=== PATIENT | female | born 1980 | race Two or more races ===

== ENCOUNTER 2019-12-15 20:00 | Inpatient (IN) | payer OTHER ==
[~2019-12-15] VITALS: Ht 157.5 cm; Wt 52.0 kg
--- NOTE | 2019-12-15 20:11 | NUR ---
BIB [facility] [place] FROM [facility] FOR SOB AND COUGH X3 DAYS CT CHEST INDICATED BILAT OPACITIED. LACTIC 4.7, NEUTROPHENIC 0.71 AND PTL 94 PT ON 6L NC, HAS HX OF RIGHT BRCA, BRAIN CA, STROKE WITH RIGHT SIDE FLACCID. PT HAS GRANDA PLACED A WEEK AGO AT [facility], HAS RIGTHT SIDE CHEST PORT, AND PEG TUBE. PLACED ON CARDIAC AND VITALS SIGNS MONITORS.
[2019-12-15] MEDS ORDERED: HYDROmorphone 2 MG/ML, 1ML ONE ×2 (20:29→21:17)
[2019-12-15] MEDS ORDERED: ONDANSETRON 2MG/ML, 2ML ONE (20:29)
[2019-12-15] MEDS ORDERED: ONDANSETRON 2MG/ML, 2ML IVPush ONE (20:30)
[2019-12-15] MEDS ORDERED: SODIUM CHLORIDE FLUSH 10ML SYR IVF ONE (20:30)
[2019-12-15] MEDS: HYDROmorphone 2 MG/ML, 1ML IVPush PRN ×2 (20:34→21:19)
--- NOTE | 2019-12-15 20:43 | NUR ---
PT MEDICATED PER SEP. PROVIDER AT BEDSIDE FOR COVID SWAB. LAB AT BEDSIDE FOR BLOOD CULTURES.
[2019-12-15] MEDS ORDERED: SODIUM CHLORIDE FLUSH 10ML SYR IVF PRN (21:00)
[2019-12-15 21:17] LABS: ALBUMIN 2.2 g/dL (3.4-5.0); ANION GAP 7 mmol/L (5-15); CALCIUM 7.9 mg/dL (8.5-10.1); CHLORIDE 100 mmol/L (98-107)
[2019-12-15 21:24] LABS: ALANINE AMINOTRANSFERASE 1014 U/L (12-78); ALKALINE PHOSPHATASE 107 U/L (45-117); BILIRUBIN,TOTAL 0.5 mg/dL (0.2-1.0); TOTAL PROTEIN 5.6 g/dL (6.4-8.2)
[2019-12-15] MEDS ORDERED: FLUCONAZOLE 200 MG/100 ML 100 ML IV ONE (21:30)
[2019-12-15] MEDS ORDERED: BISACODYL 10 MG SUPP PR PRN (21:30)
[2019-12-15] MEDS ORDERED: ONDANSETRON 2MG/ML, 2ML IVPush PRN (21:30)
[2019-12-15] MEDS: SODIUM CHLORIDE 0.9% 1,000 ML IV SCH (21:33)
--- NOTE | 2019-12-15 22:10 | NUR ---
CALL FROM PT'S NIECE IAN PULIDO, PER PT OKAY TO SPEAK TO FAMILY. IAN'S PHONE NUMBER IS [phone], PT'S [place], PHONE NUMBER [phone]. 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
[2019-12-15 22:21] LABS: MD YES
--- NOTE | 2019-12-15 22:36 | NUR ---
CALL FROM LAB, PT NEEDS A RE-DRAW.
[2019-12-15 23:24] LABS: MD YES; MEAN CORPUSCULAR HEMOGLOBIN 28.9 pg (27.0-34.8); MEAN CORPUSCULAR HGB CONC 33.6 g/dL (32.4-35.8); MEAN CORPUSCULAR VOLUME 86.1 fL (80-100); MEAN PLATELET VOLUME 6.9 fL (7.4-10.4); PLATELET COUNT 87 x10^3/uL (130-400)
[2019-12-15 23:33] LABS: BANDS%(MANUAL) 25 % (0-7); LYMPHS% (MANUAL) 21 % (22-44); MONOS% (MANUAL) 5 % (2-9); SEGS% (MANUAL) 49 % (42-75)
[2019-12-15 23:34] LABS: <PLATELET ESTIMATE> DECREASED; <RBC MORPHOLOGY> NORMAL; SMALL PLATELETS 1+
--- NOTE | 2019-12-15 23:45 | NUR ---
FSBS 171
[2019-12-16] MEDS: INSULIN LISPRO 100 UNITS/ML, PEN SQ-INSULIN SCH ×2 (00:18→07:40)
--- NOTE | 2019-12-16 01:30 | NUR ---
PT C/O PAIN IN HEAD 04/15. UPDATED DR. MCCORMICK, PER DR. MCCORMICK ORDER 0.5MG DILAUDID ONE TIME ONLY AND F/U IN THE AM WITH HOSPITALIST FOR STANDING ORDER.
[2019-12-16] MEDS ORDERED: HYDROmorphone 2 MG/ML, 1ML ONE (01:37)
[2019-12-16] MEDS ORDERED: HYDROmorphone 1 MG/ML, 1ML INJ IVPush ONE (02:00)
[2019-12-16] MEDS ORDERED: VANCOMYCIN 1,000 MG in SODIUM CHLORIDE 0.9% 100 ML IV ONE (04:00)
[2019-12-16 04:57] LABS: MEAN CORPUSCULAR HEMOGLOBIN 28.7 pg (27.0-34.8); MEAN CORPUSCULAR HGB CONC 33.6 g/dL (32.4-35.8); MEAN CORPUSCULAR VOLUME 85.5 fL (80-100); RED BLOOD COUNT 3.98 x10^6/uL (3.82-5.3); RED CELL DISTRIBUTION WIDTH 14.9 % (9.6-15.2)
[2019-12-16 05:06] LABS: ALBUMIN 1.7 g/dL (3.4-5.0); ANION GAP 6 mmol/L (5-15); CHLORIDE 100 mmol/L (98-107)
[2019-12-16 05:10] LABS: ALANINE AMINOTRANSFERASE 853 U/L (12-78); ALKALINE PHOSPHATASE 98 U/L (45-117); BILIRUBIN,TOTAL 0.7 mg/dL (0.2-1.0); CREATININE 0.44 mg/dL (0.55-1.02); TOTAL PROTEIN 5.7 g/dL (6.4-8.2)
--- NOTE | 2019-12-16 05:26 | NUR ---
PROVIDED ORAL CARE AND GRANDA CARE. SUCTION AT BEDSIDE. SAFETY FALL PRECAUTIONS IN PLACE. CALL LIGHT PLACED WITHIN REACH.
[2019-12-16 05:40] LABS: MD YES; MEAN PLATELET VOLUME 7.1 fL (7.4-10.4); PLATELET COUNT 85 x10^3/uL (130-400)
[2019-12-16 05:43] LABS: METAMYELOCYTES# (MANUAL) 0.04 x10^3/uL (0-0); METAMYELOCYTES% (MANUAL) 2 % (0-1)
[2019-12-16 05:45] LABS: <RBC MORPHOLOGY> NORMAL; BAND#(MANUAL) 0.88 x10^3/uL; BANDS%(MANUAL) 40 % (0-7); LYMPH#(MANUAL) 0.22 x10^3/uL (1-3.4); LYMPHS% (MANUAL) 10 % (22-44); MONOS#(MANUAL) 0.02 x10^3/uL (0.3-2.7); MONOS% (MANUAL) 1 % (2-9); PMNS WITH VACUOLES 1+; SEG#(MANUAL) 1.03 x10^3/uL (1.8-6.8); SEGS% (MANUAL) 47 % (42-75)
[2019-12-16 05:46] LABS: <PLATELET ESTIMATE> DECREASED; <PLT MORPHOLOGY> NORMAL PLT MORPH
[2019-12-16] MEDS ORDERED: PHARMACOKINETIC MONITORING MC PRN (06:00)
--- NOTE | 2019-12-16 06:56 | NUR ---
REPORT TO ELBA SANCHEZ.
--- NOTE | 2019-12-16 07:04 | NUR ---
REPORT FROM [facility], ASSUME CARE OF PT AT THIS TIME.
--- NOTE | 2019-12-16 07:40 | NUR ---
FS GLUCOSE 119, NO INSULIN GIVEN. PULSE OX READING 84%, NASAL CANNULA REMOVED FROM NOSE BY PT. OXYGEN REPLACED AT 4 LITERS VIA NC WITH SAT IMPROVING TO 92%.
--- NOTE | 2019-12-16 08:20 | NUR ---
CALL TO [facility] REQUESTING PAIN MEDICATION ORDER FOR PT. PER DR JERNIGAN, MORPHINE 1MG IV Q 2 HRS PRN.
[2019-12-16] MEDS ORDERED: MORPHINE SULFATE 4 MG/ML, 1ML ONE (08:48)
[2019-12-16] MEDS ORDERED: PIPERACILLIN/TAZO/PMX 3.375GM 50 ML IV SCH (09:00)
[2019-12-16] MEDS ORDERED: PIPERACILLIN/TAZO/PMX 3.375GM 50 ML ONE (09:03)
[2019-12-16] MEDS: SODIUM CHLORIDE 0.9% 1,000 ML IV SCH (09:14)
[2019-12-16] MEDS: MORPHINE SULFATE 4 MG/ML, 1ML IVPush PRN ×2 (09:15→11:27)
--- NOTE | 2019-12-16 09:15 | NUR ---
ZOSYN INFUSING PER EMAR. MORPHINE GIVEN PER TO FOR PAIN TO CHEST, R ARM PAIN AND FOREMAN. ATTEMPT TO PO SUCTION/SMALL AMOUNT OF MUCOUS ORAL. PT WITH AUDIBLE CONGESTION, ABLE TO TAKE DEEP BREATH AND COUGH PER REQUEST. OXYGEN INCREASED TO 5LITERS VIA NC WITHOUT IMPROVEMENT IN SATURATION. ATTEMPT WITH OXYMASK WITHOUT SIGNIFICANT IMPROVEMENT. NRB AT 15 LITERS PLACED, PULSE OX READING 88-89%. CALL TO [facility] TO REPORT CONDITION. Addendum: 12/16/19 at 1000 by RACHAEL LS AUSCULTATED, CRACKLES ON LEFT AND DIMINISHED AT BASE. R LS DIMINISHED THROUGHOUT.
[2019-12-16] MEDS ORDERED: FUROSEMIDE 20 MG/2 ML ONE (09:19)
--- NOTE | 2019-12-16 09:20 | NUR ---
GRANDA BAG EMPTIED FOR 700 CC DARK YELLOW URINE.
--- NOTE | 2019-12-16 09:30 | NUR ---
[facility] AT . PCXR STAT ORDERED. PULSE OX READING MID 70% AT THIS TIME. LASIX 40 MG IVP GIVEN PER VO FROM [facility].
--- NOTE | 2019-12-16 09:39 | NUR ---
PCXR COMPLETED AT BS.
--- NOTE | 2019-12-16 09:45 | NUR ---
[facility] ATTEMPTING TO CALL PT FAMILY TO DISCUSS CODE STATUS. CODE STATUS CURRENTLY LISTED FULL CODE AT THIS TIME. PULSE OX CONTINUALLY DROPPING, CURRENTLY 68-70% ON NRB. PT FREQUENTLY REMOVING MASK AND ASKING FOR STAFF TO STAY WITH HER/HOLD HAND.
[2019-12-16] MEDS ORDERED: methylPREDNISolone SOD SUCC 125 MG/2 ML IVPush SCH ×2 (10:00→10:30)
[2019-12-16] MEDS ORDERED: methylPREDNISolone SOD SUCC 125 MG/2 ML ONE (10:01)
--- NOTE | 2019-12-16 10:06 | NUR ---
SOLUMEDROL 125 MG GIVEN IV PER VO.
[2019-12-16 10:12] VITALS: BP 102/77
--- NOTE | 2019-12-16 10:14 | NUR ---
ATTEMPT TO CALL REPORT. RN TO CALL BACK, IN OTHER PT ROOM.
--- NOTE | 2019-12-16 10:29 | NUR ---
G DRAWN BY [employer]. 2ND ATTEMPT TO CALL REPORT TO ICU.
[2019-12-16] MEDS ORDERED: FUROSEMIDE 40 MG/4 ML IVPush ONE (10:30)
[2019-12-16 10:36] LABS: O2 FLOW 16 L/min
--- NOTE | 2019-12-16 10:43 | NUR ---
REPORT TO STEF RN, PT READY FOR TRANSPORT.
--- NOTE | 2019-12-16 10:46 | NUR ---
TASK RN: PO2 36.[address] JERNIGAN NOTIFIED.
[2019-12-16] MEDS ORDERED: TBO-FILGRASTIM 480 MCG/0.8 ML SQ SCH (11:00)
[2019-12-16] MEDS ORDERED: ATROPINE OPHTH SOLN 1%, 5ML PO PRN (11:30)
[2019-12-16] MEDS: SODIUM CHLORIDE FLUSH 10ML SYR IVF SCH ×2 (11:30→19:49)
[2019-12-16] MEDS ORDERED: MORPHINE SULFATE 4 MG/ML, 1ML IVPush PRN (11:30)
[2019-12-16] MEDS ORDERED: ONDANSETRON 2MG/ML, 2ML IVPush PRN (11:30)
[2019-12-16] MEDS ORDERED: LORazepam 2 MG/ML, 1ML IVPush PRN (12:00)
[2019-12-16] MEDS: MORPHINE 30MG/30ML PCA.SYR IV PRN ×2 (13:23→19:45)
[2019-12-16] MEDS ORDERED: LEVOFLOXACIN/PMX 750MG/150ML 150 ML IV SCH (16:00)
[2019-12-16] MEDS ORDERED: VANCOMYCIN PER PHARMACY MC PRN (16:00)
[2019-12-16] MEDS ORDERED: FLUCONAZOLE 100MG/50ML 100 MG in BAG 1 EACH IV SCH (22:00)
[2019-12-17] MEDS: MORPHINE 30MG/30ML PCA.SYR IV PRN ×2 (01:48→07:57)
[2019-12-17] MEDS: SODIUM CHLORIDE FLUSH 10ML SYR IVF SCH (09:00)
[2019-12-17] MEDS ORDERED: BISA10SU4 PR (09:36)
[2019-12-17] MEDS ORDERED: ATRO2DRO3 PO (09:36)
[2019-12-17] MEDS ORDERED: LORA2VIA6 IVPush (09:36)
[2019-12-17] MEDS ORDERED: MORP30PC IV (09:36)
[2019-12-17] MEDS ORDERED: SCOPOLAMINE 1MG PATCH TD SCH (10:00)
[2019-12-17] MEDS ORDERED: morphine SULFATE ORAL.CONC 20 MG/ML PO PRN (13:30)
== END 2019-12-17 17:20 | disposition hospice, home (50) | DRG 871 ==
LOC: ED 20:19 → EDIP 21:22 → ICU 12-16 10:57 → 3WST 12-16 18:29
PROVIDERS: ADMIT Internal Medicine; ATTEND Internal Medicine Infectious Disease
DX: A41.9 Sepsis, unspecified organism (principal); J15.9 Unspecified bacterial pneumonia; C78.00 Secondary malignant neoplasm of unspecified lung; C79.31 Secondary malignant neoplasm of brain; E87.1 Hypo-osmolality and hyponatremia; G81.94 Hemiplegia, unspecified affecting left nondominant side; R47.01 Aphasia; C50.919 Malignant neoplasm of unspecified site of unspecified female breast; D69.6 Thrombocytopenia, unspecified; D70.9 Neutropenia, unspecified; R73.9 Hyperglycemia, unspecified; R74.0 Nonspecific elevation of levels of transaminase and lactic acid dehydrogenase [LDH]; Z66 Do not resuscitate; Z51.5 Encounter for palliative care; R09.02 Hypoxemia; Z20.828 Contact with and (suspected) exposure to other viral communicable diseases; R13.10 Dysphagia, unspecified; Z85.3 Personal history of malignant neoplasm of breast; Z85.841 Personal history of malignant neoplasm of brain; Z86.73 Personal history of transient ischemic attack (TIA), and cerebral infarction without residual deficits; Z90.11 Acquired absence of right breast and nipple; Z93.1 Gastrostomy status; Z79.899 Other long term (current) drug therapy
CPT/HCPCS: 36415; 36600; 71045; 76700; 80053; 80074; 82803; 82962; 83036; 83605; 83690; 84145; 85025; 87040; 87635; 93005; 96374; 96375; 96376; G0378; J1170; J1940; J2270; J2405; J2543; J3370; J1450; J1815; J2930; J7030; U0001-CS